=== PATIENT | male | born 1955 | race Two or more races ===

== ENCOUNTER 2016-11-12 09:16 | Inpatient (IN) | payer OTHER ==
--- NOTE | 2016-11-12 09:25 | CPEKG ---
Heart Rate: 63 RR Interval: 952 P-R Interval: 184 QRSD Interval: 104 QT Interval: 396 QTC Interval: 406 P [place]: 53 QRS [place]: -46 T Wave [place]: -34 EKG Severity - ABNORMAL ECG - EKG Impression: SINUS RHYTHM EKG Impression: PROBABLE INFERIOR INFARCT, AGE INDETERMINATE EKG Impression: Less than [address]-elevation in lead V3 only, early right bundle branch block EKG Impression: and T-wave inversions inferiorly. Electronically Signed By: Paulino Salgado 12-Nov-2016 09:35:20
[2016-11-12] MEDS ORDERED: ASPIRIN 81 MG CHEWABLE TAB ONE (09:29)
[2016-11-12] MEDS ORDERED: ASPIRIN 81 MG CHEWABLE TAB PO ONE (09:30)
[2016-11-12] MEDS ORDERED: NITROGLYCERIN 0.4 MG BTL SL PRN ×2 (09:42→15:56)
[2016-11-12] MEDS ORDERED: NS 500 ML IV ONE (09:42)
--- NOTE | 2016-11-12 09:42 | UCPHY ---
H & P Patient Type: New Chief Complaint Nursing Narrative: chest/neck/throat pain on and off since last weekend. generalized fatigue/wekaness all week Time Seen by Provider: 11/12/16 09:33 HPI/ROS: CHIEF COMPLAINT: Chest pain HISTORY OF PRESENT ILLNESS: The patient is a 61-year-old man who comes to the Urgent Care complaining of chest discomfort and throat pain/burning for about 10 days. He states that it began while doing a strenuous bicycle ride last Saturday. His symptoms improved to some degree with rest but has had persistent upper chest and throat discomfort since. He tried taking Zantac without relief. Does have a history of pre diabetes but no other significant medical conditions. His father of Heart disease. No Recent fevers or illness. REVIEW OF SYSTEMS: Constitutional: denies: chills, fever, recent illness, recent injury EENTM: denies: blurred vision, double vision, nose congestion Respiratory: denies: cough, shortness of breath Cardiac: See HPI Gastrointestinal/Abdominal: denies: abdominal pain, diarrhea, nausea, vomiting, blood streaked stools Genitourinary: denies: dysuria, frequency, hematuria, pain Musculoskeletal: denies: joint pain, muscle pain Skin: denies: lesions, rash, jaundice, bruising Neurological: denies: headache, numbness, paresthesia, tingling, dizziness, weakness Hematologic/Lymphatic: denies: blood clots, easy bleeding, easy bruising Immunologic/allergic: denies: HIV/AIDS, transplant EXAM: GENERAL: Well-appearing, well-nourished and in no acute distress. HEAD: Atraumatic, normocephalic. EYES: Pupils equal round and reactive to light, extraocular movements intact, sclera anicteric, conjunctiva are normal. ENT: TMs normal, nares patent, oropharynx clear without exudates. Moist mucous membranes. NECK: Normal range of motion, supple without lymphadenopathy or JVD. LUNGS: Breath sounds clear to auscultation bilaterally and equal. No wheezes rales or rhonchi. HEART: Regular rate and rhythm without murmurs, rubs or gallops. ABDOMEN: Soft, nontender, normoactive bowel sounds. No guarding, no rebound. No masses appreciated. BACK: No CVA tenderness, no spinal tenderness, step-offs or deformities EXTREMITIES: Normal range of motion, no pitting or edema. No clubbing or cyanosis. NEUROLOGICAL: Cranial nerves II through XII grossly intact. Normal speech, normal gait. 5/5 strength, normal movement in all extremities, normal sensation PSYCH: Normal mood, normal affect. SKIN: Warm, dry, normal turgor, no visible rashes or lesions. Source: Patient, Family - Personal History Current Tetanus/Diphtheria Vaccine: Unsure Current Tetanus Diphtheria and Acellular Pertussis (TDAP): Unsure - Medical/Surgical History Hx Asthma: No Hx Chronic Respiratory Disease: No Hx Diabetes: No Hx Cardiac Disease: No Hx Renal Disease: No Hx Cirrhosis: No Hx Alcoholism: No Hx HIV/AIDS: No Hx Splenectomy or Spleen Trauma: No Other PMH: knee sx. eye sx. pre-diabetes diet controlled - Family History Significant Family History: No pertinent family hx - Social History Smoking Status: Never smoked Alcohol Use: None Drug Use: None Constitutional: Initial Vital Signs Temperature (C) 36.3 C 11/12/16 09:28 Heart Rate 64 11/12/16 09:28 Respiratory Rate 18 11/12/16 09:28 Blood Pressure 169/98 H 11/12/16 09:28 O2 Sat (%) 98 11/12/16 09:28 O2 Delivery Mode Room Air Allergies/Adverse Reactions: No Known Allergies Allergy (Unverified 11/12/16 09:28) Home Medications: Medication Instructions Recorded IBUPROFEN 11/12/16 Medical Decision Making - Diagnostics EKG Interpretation: An EKG obtained and was read and documented in trace view. Please see trace view for full reading and report. Sinus rhythm with early right bundle branch block, ST elevation less than 1 mm in lead V3 only. T-wave inversion in lead 3 and AVF. A 2nd EKG obtained and was read and documented in trace view. Please see trace view for full reading and report. Less than [address]-elevation in lead V2 and V3 with T-wave inversions in lead to 3 and AVF. A 3rd EKG obtained and was read and documented in trace view. Please see trace view for full reading and report. Similar to 2nd EKG with less than [address]-elevation in lead V2 and 3 and T-wave inversions inferiorly ED Course/Re-evaluation: 10:05 a.m. the patient's 2nd EKG looks slightly worse altered does not meet criteria for STEMI. Patient is well appearing. He states that he feels. Lab work pending. He has received nitroglycerin and aspirin. 10:20 a.m. I discussed the case with Vicky from [facility]. She requests admission to the hospitalist service and they will consult. 3rd EKG pending. Patient's symptoms resolved with nitroglycerin. 10:40 a.m. I discussed the case with Gunjan who accepted to the PCU for Dr. Fiordaliza Hughes. Patient's pain is resolved. He is well appearing. Differential Diagnosis: Partial list of the Differential diagnosis considered include but were not limited to; acute coronary disease, PE and although unlikely based on the history and physical exam, I also considered pneumonia, arrhythmia. - Data Points Laboratory Results: Laboratory Results 11/12/16 09:45 11/12/16 09:45 11/12/16 11/12/16 11/12/16 09:45 09:45 09:45 WBC 8.14 10^3/uL 10^3/uL (3.80-9.50) RBC 5.26 10^6/uL 10^6/uL (4.40-6.38) Hgb 16.3 g/dL g/dL (13.7-17.5) Hct 45.4 % % (40.0-51.0) MCV 86.3 fL fL (81.5-99.8) MCH 31.0 pg pg (27.9-34.1) MCHC 35.9 g/dL g/dL (32.4-36.7) RDW 12.9 % % (11.5-15.2) Plt Count 239 10^3/uL 10^3/uL (150-400) MPV 10.2 fL fL (8.7-11.7) Neut % (Auto) 51.8 % % (39.3-74.2) Lymph % (Auto) 34.9 % % (15.0-45.0) [place] % (Auto) 8.7 % % (4.5-13.0) Eos % (Auto) 3.3 % % (0.6-7.6) Baso % (Auto) 0.7 % % (0.3-1.7) Nucleat RBC Rel Count 0.0 % % (0.0-0.2) Absolute Neuts (auto) 4.21 10^3/uL 10^3/uL (1.70-6.50) Absolute Lymphs (auto) 2.84 10^3/uL 10^3/uL (1.00-3.00) Absolute Monos (auto) 0.71 10^3/uL 10^3/uL (0.30-0.80) Absolute Eos (auto) 0.27 10^3/uL 10^3/uL (0.03-0.40) Absolute Basos (auto) 0.06 10^3/uL 10^3/uL (0.02-0.10) Absolute Nucleated RBC 0.00 10^3/uL 10^3/uL (0-0.01) Immature Gran % 0.6 % % (0.0-1.1) Immature Gran # 0.05 10^3/uL 10^3/uL (0.00-0.10) PT 12.4 SEC SEC (12.0-15.0) INR 0.95 (0.83-1.16) APTT 28.0 SEC SEC (23.0-38.0) D-Dimer < 0.27 ug/mLFEU ug/mLFEU (0.00-0.50) Sodium 140 mEq/L mEq/L (134-144) Potassium 4.7 mEq/L mEq/L (3.5-5.2) Chloride 100 mEq/L mEq/L (97-110) Carbon Dioxide 24 mEq/l mEq/l (22-31) Anion Gap 16 mEq/L mEq/L (8-16) BUN 23 mg/dL mg/dL (7-23) Creatinine 1.1 mg/dL mg/dL (0.7-1.3) Estimated GFR > 60 Glucose 94 mg/dL mg/dL (70-100) Calcium 9.9 mg/dL mg/dL (8.5-10.4) Total Bilirubin 1.0 mg/dL mg/dL (0.1-1.4) Conjugated Bilirubin 0.3 mg/dL mg/dL (0.0-0.5) Unconjugated Bilirubin 0.7 mg/dL mg/dL (0.0-1.1) AST 24 IU/L IU/L (17-59) ALT 64 IU/L IU/L (21-72) Alkaline Phosphatase 75 IU/L IU/L (38-126) Troponin I 0.108 ng/mL H ng/mL (0-0.034) NT-Pro-B Natriuret Pep 257 pg/mL H pg/mL (0-125) Total Protein 7.5 g/dL g/dL (6.3-8.2) Albumin 4.3 g/dL g/dL (3.5-5.0) Lipase 106.0 IU/L IU/L (23-300) Medications Given: Discontinued Medications Aspirin (Aspirin) 324 mg PO EDNOW ONE Stop: 11/12/16 09:31 Last Admin: 11/12/16 09:31 Dose: 324 mg Sodium Chloride (Ns) 500 mls @ 0 mls/hr IV ONCE ONE PRN Reason: As Directed Stop: 11/12/16 09:43 Last Admin: 11/12/16 10:01 Dose: 500 mls Departure - Departure Disposition: [facility] Inpatient Acute Clinical Impression: Myocardial infarction Qualifiers: Myocardial infarction ST status: non-ST elevation myocardial infarction Qualified Code(s): I21.4 - Non-ST elevation (NSTEMI) myocardial infarction Condition: Fair Referrals: Justin Martin MD [Primary Care Provider] - As per Instructions - PQRS PQRS Measurement: Not applicable
[2016-11-12 09:49] LABS: % IMMATURE GRANULYOCYTES 0.6 % (0.0-1.1); ABSOLUTE IMMATURE GRANULOCYTES 0.05 10^3/uL (0.00-0.10); ADD DIFF? NO; ADD MORPH? NO; ADD SCAN? NO; ATYPICAL LYMPHOCYTE FLAG 0 (0-99); FRAGMENT RBC FLAG 0 (0-99); HEMATOCRIT 45.4 % (40.0-51.0); HEMOGLOBIN 16.3 g/dL (13.7-17.5); LEFT SHIFT FLG 0 (0-99); LIPEMIA HEMOLYSIS FLAG 90 (0-99); MEAN CELL HEMOGLOBIN CONCENTR. 35.9 g/dL (32.4-36.7); MEAN CELL VOLUME 86.3 fL (81.5-99.8); MEAN PLATELET VOLUME 10.2 fL (8.7-11.7); PLATELET CLUMPS FLAG 0 (0-99); PLATELET COUNT 239 10^3/uL (150-400); RED BLOOD CELL COUNT 5.26 10^6/uL (4.40-6.38); RED CELL DISTRIBUTION WIDTH 12.9 % (11.5-15.2)
[2016-11-12 09:59] LABS: INR 0.95 (0.83-1.16); PROTIME(PATIENT) 12.4 SEC (12.0-15.0)
[2016-11-12 10:03] LABS: ALANINE AMINOTRANSFERASE 64 IU/L (21-72); ALBUMIN 4.3 g/dL (3.5-5.0); ALKALINE PHOSPHATASE 75 IU/L (38-126); ANION GAP 16 mEq/L (8-16); ASPARTATE AMINOTRANSFERASE 24 IU/L (17-59); BILIRUBIN-CONJUGATED 0.3 mg/dL (0.0-0.5); BILIRUBIN-UNCONJUGATED 0.7 mg/dL (0.0-1.1); CALCIUM 9.9 mg/dL (8.5-10.4); CARBON DIOXIDE 24 mEq/l (22-31); CHLORIDE 100 mEq/L (97-110); CREATININE 1.1 mg/dL (0.7-1.3); GLOMERULAR FILTRATION RATE > 60; GLUCOSE 94 mg/dL (70-100); POTASSIUM 4.7 mEq/L (3.5-5.2); SODIUM 140 mEq/L (134-144); TOTAL PROTEIN 7.5 g/dL (6.3-8.2)
--- NOTE | 2016-11-12 10:13 | CPEKG ---
Heart Rate: 60 RR Interval: 1000 P-R Interval: 184 QRSD Interval: 106 QT Interval: 408 QTC Interval: 408 P [place]: 41 QRS [place]: -46 T Wave [place]: -37 EKG Severity - ABNORMAL ECG - EKG Impression: SINUS RHYTHM EKG Impression: LEFT ANTERIOR FASCICULAR BLOCK EKG Impression: ABNORMAL T, CONSIDER ISCHEMIA, INFERIOR LEADS EKG Impression: Less than [address]-elevationWith inferior lead T-wave inversions Electronically Signed By: Paulino Salgado 12-Nov-2016 10:27:30
[2016-11-12 10:14] LABS: TROPONIN I 0.108 ng/mL (0-0.034)
--- NOTE | 2016-11-12 10:24 | CPEKG ---
Heart Rate: 58 RR Interval: 1034 P-R Interval: 192 QRSD Interval: 102 QT Interval: 416 QTC Interval: 409 P [place]: 40 QRS [place]: -49 T Wave [place]: -39 EKG Severity - ABNORMAL ECG - EKG Impression: SINUS RHYTHM EKG Impression: LEFT ANTERIOR FASCICULAR BLOCK EKG Impression: ABNORMAL T, CONSIDER ISCHEMIA, INFERIOR LEADS EKG Impression: similar to previous, Electronically Signed By: Paulino Salgado 12-Nov-2016 10:27:48
[2016-11-12] MEDS ORDERED: NS 1,000 ML IV ONE (12:44)
[2016-11-12] MEDS ORDERED: diphenhydrAMINE 25 MG CAP PO ONE ×2 (12:44→13:05)
[2016-11-12] MEDS ORDERED: DIAZEPAM 5 MG TAB PO ONE (12:44)
[2016-11-12] MEDS ORDERED: FAMOTIDINE 20 MG TAB PO ONE (12:44)
[2016-11-12] MEDS ORDERED: fentaNYL 100 MCG/2 ML INJ ONE ×2 (12:51→15:08)
[2016-11-12] MEDS ORDERED: MIDAZOLAM 2 MG/2 ML VIAL ONE ×2 (12:51→15:09)
[2016-11-12] MEDS ORDERED: LIDOCAINE 1% 30 ML SDV ONE (12:51)
[2016-11-12] MEDS ORDERED: IOPAMIDOL (ISOVUE 370) 100 ML BTL IV ONE ×2 (12:52→14:20)
[2016-11-12] MEDS ORDERED: ONDANSETRON DISINTEGRATING 4 MG TAB PO PRN (13:02)
[2016-11-12] MEDS ORDERED: ACETAMINOPHEN 325 MG TAB PO PRN (13:02)
[2016-11-12] MEDS ORDERED: ONDANSETRON 4 MG/2 ML VIAL IVP PRN (13:02)
[2016-11-12] MEDS ORDERED: ZOLPIDEM TARTRATE 5 MG TAB PO PRN (13:02)
[2016-11-12] MEDS ORDERED: DIAZEPAM 5 MG TAB ONE (13:05)
[2016-11-12] MEDS ORDERED: FAMOTIDINE 20 MG TAB ONE (13:05)
--- NOTE | 2016-11-12 13:11 | GCON ---
[f rep st] CONSULTATION DATE OF CONSULTATION: 11/12/2016 CHIEF COMPLAINT: We have been asked by Dr. Hughes to evaluate the patient with a chief complaint of c hest pain. HISTORY OF PRESENT ILLNESS: The patient is a 61-year-old gentleman with risk factors including age, hypertension, and borderline diabetes, who presents with a chief complaint of chest pain. The yuliana ent was in his usual state of health until approximately 1 week prior to admission, when he went for a bike ride. While doing his hill climb, he began to experience throat discomfort which later exte nded down into his chest. The discomfort was associated with diaphoresis, but not nausea or vomitin g. The discomfort lasted approximately 45 minutes to 1 hour before resolving with rest. Since this time, patient has noted a low level chest discomfort. He has not noted the throat discomfort, naus ea, vomiting, or diaphoresis. The patient did go for a walk with his 2 days prior to admission and was unable to make it up a hill secondary to profound fatigue. The patient denies a previous h istory of coronary artery disease. He does have risk factors, as noted above. PAST MEDICAL HISTORY: 1. Hypertension. 2. Borderline diabetes. MEDICATIONS: None. ALLERGIES: No known drug allergies. SOCIAL HISTORY: The patient is a computer lab para professional. He used to work in the for the [employer]. He does not smoke. He denies problems with alcohol. FAMILY HISTORY: Noncontributory. REVIEW OF SYSTEMS: A 10-point review of systems is negative, except as noted in HPI. PHYSICAL EXAMINATION: GENERAL: Patient is resting comfortably in bed. He does not appear to be in acute distress. VITAL SIGNS: Temperature is afebrile. Pulse is 64, blood pressure 168/104, respi ratory rate is 18, SaO2 is 100% on 2 L nasal cannula. HEENT: Normocephalic, atraumatic. Extraocul ar muscles intact. Patient is status post cataract surgery. NECK: No JVD. No bruits. LUNGS: Cl ear to auscultation bilaterally. CARDIOVASCULAR: Regular rate and rhythm S1, S2. No murmurs, rubs , or gallops appreciated. ABDOMEN: Soft, nontender. Normoactive bowel sounds. No hepatosplenomeg chance. Could not palpate aorta. EXTREMITIES: No clubbing, cyanosis, or edema. SKIN: No evidence o f rash. NEURO: Patient awake, alert, and oriented x3. LABORATORY: Sodium 140, potassium 4.7, chloride 100, CO2 24, BUN 23, creatinine 1.1. Troponin 0.10 8. INR was 0.95. White blood cell count 8.14, hemoglobin 16.3, hematocrit 45.4, platelet count 239 . EKG demonstrates sinus rhythm, incomplete right bundle branch block, left anterior fascicular blo ck, T-wave inversions in the inferior leads, J-point elevation in the precordial leads. ASSESSMENT AND PLAN: The patient is a 61-year-old gentleman with multiple cardiac risk factors, who presents with an episode of chest pain approximately 1 week prior to admission consistent with an a cute coronary syndrome versus myocardial infarction. He is continuing to have low level chest disco mfort at this time. Reviewed risks and benefits of cardiac catheterization with the patient and his to further risk stratify the patient. Will arrange to have this performed. /[id number]/MODL
--- NOTE | 2016-11-12 13:41 | GHP ---
[f rep st] HISTORY AND PHYSICAL DATE OF ADMISSION: 11/12/2016 CHIEF COMPLAINT: Chest pain. HISTORY OF PRESENT ILLNESS: The patient is a 61-year-old healthy man who comes in with chest pressu re radiating to his throat. He first noted it a week ago Saturday while he was biking up a hill. T he pain was severe enough that he opted to turn around and come home. The pain was fairly constant until he got home. He said he laid down and then the pain eased off. It was associated with some d iaphoresis but no shortness of breath, nausea, vomiting, or dizziness. Since Saturday the pain has been intermittent, typically gets better when he is lying down and worse when he gets up and around. He was diaphoretic for the first couple days but since then has not been. He has not had any feve rs or chills. He denies shortness of breath, coughing, dizziness. He has had no nausea or vomiting . He opted to call his primary care physician today when his pain was not completely going away and was told to go to urgent care. When he went to urgent care he continued to have some chest discomf ort radiating to his throat. He was given nitroglycerin and 4 baby aspirin and the pain resolved. It is starting to come back and he is having just a little bit of discomfort noted in his right ante rior chest wall. Other than that, he has been healthy. He denies any recent weight changes. No re cent illnesses. No bowel changes. No lower extremity swelling. No neurologic complaints. REVIEW OF SYSTEMS: A 10 point review of systems was done with pertinent positives and negatives pre sent in the HPI. PAST MEDICAL HISTORY: Prediabetes. Patient does admit to similar symptoms although not quite as se anjali in May that was also related to exercise. It has not recurred since then. PAST SURGICAL HISTORY: Includes torn meniscus and cataract. FAMILY HISTORY: Father had a heart arrhythmia and congestive heart failure but no history of stents . Mother from breast cancer and a sister had uterine cancer. SOCIAL HISTORY: He drinks a beer occasionally. Does not smoke tobacco. He is and does a m oderate amount of exercise 1-3 times a week. Typically, he uses the elliptical. He bicycles. He h ikes. ALLERGIES: No known drug allergies. MEDICATIONS: None. PHYSICAL EXAM: VITAL SIGNS: Patient is afebrile. His heart rate is 64, blood pressure 168/104, re spirations 18, he is 100% on 2 L. GENERAL: He is a well-developed, well-nourished 61-year-old man. He is in no obvious distress. He is alert and oriented. Speech is fluent. HEENT: Atraumatic. Pupils equal and reactive. Extraocular movements intact. Sclerae anicteric. Mucous membranes mois t. Oropharynx is clear. NECK: Supple. No adenopathy. CARDIOVASCULAR: No murmur, gallop, or rub . No carotid bruits. No abdominal bruits. LUNGS: Clear to auscultation without wheeze, rhonchi, or rales. ABDOMEN: Soft. No masses. Nontender. Normal bowel sounds. EXTREMITIES: No clubbing, cyanosis, or edema. Pulses are 2+ distally. MUSCULOSKELETAL: No obvious joint deformities or eff usions. No muscle atrophy. NEUROLOGIC: Within normal limits. LABORATORY DATA: CBC and chemistries are all normal. Troponin is elevated at 0.108 with a BNP of 2 57. Electrocardiogram personally reviewed and interpreted, shows sinus rhythm, with an intraventric ular conduction delay. He does have some T-wave inversions in III and aVF with some slight ST eleva tion in V2. Chest x-ray personally reviewed and interpreted: No acute findings. ASSESSMENT AND PLAN: 1. A 61-year-old man presents with chest pressure radiating to his throat and elevated troponin and abnormal EKG. He was evaluated at urgent care, has been transferred here and is currently being ev aluated by Cardiology for angiogram. The patient does have risk factors including prediabetes and d yslipidemia. Recent hemoglobin A1c is 5.9, with an LDL of 114. He could likely benefit from a stat in if he does indeed have heart disease. 2. Dyslipidemia, consider statin. 3. Pre-diabetes, diet controlled. 4. DVT prophylaxis. Patient relatively low risk. We will monitor while he is here. We will not check a lipid panel. He recently had one done on Saturday that showed an LDL of 117. /[id number]/MODL
[2016-11-12] MEDS ORDERED: BIVALIRUDIN 250 MG/5 ML VIAL IV ONE ×2 (13:58→15:04)
[2016-11-12] MEDS ORDERED: EPTIFIBATIDE 200 MG/100 ML BOTTLE IV ONE (14:33)
[2016-11-12] MEDS ORDERED: NITROGLYCERIN 1,500 MCG/15 ML VIAL MISC ONE (14:57)
[2016-11-12] MEDS ORDERED: TICAGRELOR 90 MG TAB PO ONE ×2 (15:39→15:56)
[2016-11-12] MEDS ORDERED: OXYCODONE/APAP 5/325 TAB PO PRN (15:56)
[2016-11-12] MEDS ORDERED: TEMAZEPAM 15 MG CAP PO PRN (15:56)
[2016-11-12] MEDS ORDERED: ASPIRIN EC 325 MG TAB PO ONE (15:56)
[2016-11-12] MEDS ORDERED: LORazepam 2 MG/ML INJ IVP PRN (15:56)
[2016-11-12] MEDS ORDERED: ATROPINE SULFATE 1 MG/10 ML SYR IVP PRN (15:56)
[2016-11-12] MEDS ORDERED: HYDROCODONE/APAP 5/325 TAB PO PRN (15:56)
--- NOTE | 2016-11-12 16:12 | CPEKG ---
Heart Rate: 60 RR Interval: 1000 P-R Interval: 192 QRSD Interval: 108 QT Interval: 412 QTC Interval: 412 P [place]: 45 QRS [place]: -53 T Wave [place]: -30 EKG Severity - ABNORMAL ECG - EKG Impression: SINUS RHYTHM EKG Impression: LAD, CONSIDER LAFB OR INFERIOR INFARCT EKG Impression: ABNORMAL T, CONSIDER ISCHEMIA, INFERIOR LEADS Electronically Signed By: Chucky Bolaños 12-Nov-2016 16:30:12
--- NOTE | 2016-11-12 19:17 | CPIP ---
[f rep st] INVASIVE CARDIAC PROCEDURE DATE OF PROCEDURE: 11/12/2016 PROCEDURES: 1. Coronary angiography. 2. Thrombectomy right coronary artery. 3. Stenting of right coronary artery with Synergy drug-eluting stents. INDICATION: Acute coronary syndrome with elevated troponin. ACCESS: Patient was prepped and draped in sterile fashion. 1% lidocaine was used to anesthetize th e right inguinal region. A 6-Maldivian introducer sheath was placed selectively into the right common femoral artery via modified Seldinger technique. The 6-Maldivian introducer sheath was later exchanged for an 8-Maldivian introducer sheath via exchange wire technique. CORONARY ANGIOGRAPHY: A 6-Maldivian JL4 was advanced to the left main coronary artery and images obtai jelena. The left main coronary artery trifurcated into an LAD, ramus, and circumflex coronary arteries . The left main coronary artery had proximal 15% stenosis present. The left anterior descending co ronary artery gave rise to 1 prominent diagonal branch. The left anterior descending coronary arter y had a discrete 20-25% stenosis prior to the diagonal artery. The diagonal artery quickly branched into 2 smaller branches. The more anterior limb had a long segmental 30% stenosis present. The ra mus coronary artery was a large vessel. The ramus coronary artery had a segmental 50-60% stenosis p resent. The circumflex coronary artery was a small vessel. The circumflex coronary artery gave ris e to 1 OM branch. The circumflex coronary artery had mild diffuse disease throughout. There was no stenosis greater than 10%. A 6-Maldivian JR4 was advanced to the right coronary artery and images obt ained. The right coronary artery was dominant. The right coronary artery was 100% occluded in the proximal segment. PERCUTANEOUS CORONARY INTERVENTION OF THE RIGHT CORONARY ARTERY: An 8-Maldivian JR4 was advanced to th e right coronary artery and images obtained. Angiography demonstrated a total occlusion of the prox imal right coronary artery. An attempt was made at passing a Luge into the distal vessel. This was unsuccessful. An attempt was made at passing a Raking Machine Operator 50 into the distal vessel. This too was unsu ccessful. Ultimately, a Raking Machine Operator 150 with turnpike backup was used to get into the distal vessel. The turnpike catheter was advanced over the Raking Machine Operator 150 wire into the distal vessel, and distal injection demonstrated true lumen. The Raking Machine Operator 150 was then exchanged for a Luge wire and the turnpike withdra wn. A 2.5 x 20 Emerge balloon was used to pre-dilate the proximal and midportion of the vessel. Fo llowup angiography demonstrated DADA 1 flow with significant residual stenosis. A Pronto catheter w as then advanced and thrombectomy performed. Followup angiography demonstrated DADA 0 flow. A 3.0 x 20 Emerge balloon was then advanced and used to pre-dilate the proximal and mid lesions. Followup angiography demonstrated DADA 0 flow. A 3.0 x 28 Synergy drug-eluting stent was placed in the mid 2 lesion and deployed. A 3.5 x 32 Synergy stent was placed in the mid 1 lesion and deployed. A 3.5 x 28 Synergy stent was placed in the proximal lesion and deployed. Followup angiography demonstrat ed incomplete stent expansion with buddhist of DADA 3 flow. The stents were postdilated with a 3 .75 x 20 Emerge balloon. Followup angiography demonstrated DADA 3 flow. No residual stenosis. In the distal portion of the vessel which was now visualized, there were 2 lesions in the distal 1 port ion of the vessel. There was a discreet 75% stenosis present followed by aneurysmal section followe d by a discrete 80% stenosis. The 8-Maldivian system was withdrawn. A 6-Maldivian system was placed. A Luge wire was placed in the distal vessel and position verified by angiography. A 3.0 x 8 Synergy d rug-eluting stent was placed in the distal 2 lesion and deployed. Followup angiography demonstrated no residual stenosis and DADA 3 flow. A 3.0 x 12 Synergy drug-eluting stent was placed in the dist al 1 lesion and deployed. Followup angiography demonstrated DADA 3 flow and complete stent expansio n. The stent was postdilated with a 3 5 x 12 noncompliant balloon. Followup angiography demonstrat ed DADA 3 flow. No residual stenosis. COMPLICATIONS: None. CONCLUSIONS: 1. Two vessel coronary artery disease involving the right coronary artery and ramus coronary artery . 2. Status post successful stenting of the right coronary artery using Synergy drug-eluting stents. /[id number]/MODL
[2016-11-12] MEDS: CARVEDILOL 3.125 MG TAB PO SCH (19:41)
[2016-11-13 04:31] LABS: % IMMATURE GRANULYOCYTES 0.2 % (0.0-1.1); ABSOLUTE IMMATURE GRANULOCYTES 0.02 10^3/uL (0.00-0.10); ADD DIFF? NO; ADD MORPH? NO; ADD SCAN? NO; ATYPICAL LYMPHOCYTE FLAG 0 (0-99); FRAGMENT RBC FLAG 0 (0-99); HEMATOCRIT 43.3 % (40.0-51.0); HEMOGLOBIN 15.4 g/dL (13.7-17.5); LEFT SHIFT FLG 0 (0-99); LIPEMIA HEMOLYSIS FLAG 90 (0-99); MEAN CELL HEMOGLOBIN 31.1 pg (27.9-34.1); MEAN CELL HEMOGLOBIN CONCENTR. 35.6 g/dL (32.4-36.7); MEAN CELL VOLUME 87.5 fL (81.5-99.8); MEAN PLATELET VOLUME 10.2 fL (8.7-11.7); PLATELET CLUMPS FLAG 0 (0-99); PLATELET COUNT 216 10^3/uL (150-400); RED BLOOD CELL COUNT 4.95 10^6/uL (4.40-6.38); RED CELL DISTRIBUTION WIDTH 13.1 % (11.5-15.2)
[2016-11-13 04:47] LABS: ANION GAP 9 mEq/L (8-16); CALCIUM 9.3 mg/dL (8.5-10.4); CARBON DIOXIDE 22 mEq/l (22-31); CHLORIDE 104 mEq/L (97-110); CREATININE 1.1 mg/dL (0.7-1.3); GLOMERULAR FILTRATION RATE > 60; GLUCOSE 117 mg/dL (70-100); POTASSIUM 4.7 mEq/L (3.5-5.2); SODIUM 135 mEq/L (134-144)
[2016-11-13 04:57] LABS: TROPONIN I 0.695 ng/mL (0-0.034)
[2016-11-13 07:53] VITALS: RESP 14; O2SAT 95
[2016-11-13] MEDS ORDERED: TICAGRELOR 90 MG TAB PO SCH (09:00)
[2016-11-13] MEDS ORDERED: ASPIRIN EC 81 MG TAB PO SCH (09:00)
[2016-11-13] MEDS ORDERED: ATORVASTATIN CALCIUM 40 MG TAB PO SCH (09:00)
--- NOTE | 2016-11-13 09:18 | CPEKG ---
Heart Rate: 62 RR Interval: 968 P-R Interval: 176 QRSD Interval: 108 QT Interval: 404 QTC Interval: 411 P [place]: 49 QRS [place]: -54 T Wave [place]: -46 EKG Severity - ABNORMAL ECG - EKG Impression: SINUS RHYTHM EKG Impression: LEFT ANTERIOR FASCICULAR BLOCK Electronically Signed By: Chucky Bolaños 13-Nov-2016 09:35:18
[2016-11-13] MEDS: CARVEDILOL 3.125 MG TAB PO SCH (09:37)
[2016-11-13 11:16] VITALS: BP 122/81; PULSE 63; TEMP 98.2
--- NOTE | 2016-11-13 13:15 | ECHO ---
[id number] + + [address] : : [place] [address] : : [phone] + + Adult Echocardiographic Report + ----+ :Name: JORGE L MAY MStudy Date: 11/13/2016 10:29 AM : : Hospital Admission Number: [id number] Location: 215: :: 1955 Gender: Male Height: 60 in : :Age: 61 yrs Race: [facility] Weight: 178 lb : :Reason For Study: Inferior MO : : BSA: 1.8 meters2 : :History: Stents RCA : + ----+ MMode/2D Measurements \T\ Calculations IVSd: 1.0 cm LVIDd: 5.2 cm FS: 33.2 % Ao root diam: LVPWd: 1.1 cm LVIDs: 3.5 cm EDV(Teich): 3.9 cm 128.2 ml LA dimension: ESV(Teich): 49.4 ml 3.8 cm EF(Teich): 61.5 % LVOT diam: 2.4 cmLVLd ap4: 8.0 cm SV(MOD-sp4): LVOT area: EDV(MOD-sp4): 44.0 ml 4.5 cm2 74.0 ml LVLs ap4: 6.9 cm ESV(MOD-sp4): 30.0 ml EF(MOD-sp4): 59.5 % Normal Measurement Values: + + :LVIDd (3.5-5.7cm) IVSd (0.6-1.1cm) LVPWd (0.6-1.1cm) Aortic Root (2.0-3.7cm)Left Atrium (1.5-4.0cm): :LV Vol(d) (76-115ml) LV Vol(s) (29-48ml) Ejec Fraction (50-65%)PV Christian (0.6- 1.2m/s) TV Christian (0.4-1.0m/s) : :MV E Christian (0.8-1.0m/s)MV A Christian (0.3-1.0m/s)LVOT Christian (0.7-1.2m/s) Asc Ao Christian ( 0.9-1.8m/s) : + + Doppler Measurements \T\ Calculations MV E max christian: 45.9 cm/sec Ao mean P.5 mmHg MV A max christian: 51.1 cm/sec Ao V2 mean: 74.9 cm/sec MV E/A: 0.90 Ao V2 VTI: 21.4 cm Left Ventricle The left ventricle is normal in size. There is normal left ventricular wall thickness. Ejection Fraction = 50-55%. Grade I diastolic dysfunction. LV base/mid inferior/inferoseptal forbes are akinetic. All remaining LV segments have normal motion. Right Ventricle The right ventricle is normal in size and function. Atria The left atrium is mildly dilated. Right atrial size is normal. The atrial septum is aneurysmal. Mitral Valve The mitral valve is normal in structure and function. There is no evidence of mitral valve prolapse. There is no mitral valve stenosis. 2 separate jets mild mitral regurgitation. Tricuspid Valve Normal tricuspid valve. Aortic Valve The aortic valve is trileaflet. The aortic valve opens well. There is no aortic stenosis. There is no aortic insufficiency. Pulmonic Valve The pulmonic valve is normal in structure and function. There is no pulmonic valvular regurgitation. Great Vessels The aortic root is normal size. Mildly dilated ascending aorta. Ascending aorta is 4.0 cm. Pericardium/Pleural There is no pericardial effusion. Conclusion A complete two-dimensional transthoracic echocardiogram was performed (2D, M-mode, Doppler and color flow Doppler). LV base/mid inferior/inferoseptal forbes are akinetic. All remaining LV segments have normal motion. Ejection Fraction = 50-55%. Grade I diastolic dysfunction The left atrium is mildly dilated. 2 separate jets mild mitral regurgitation. Mildly dilated ascending aorta. Ascending aorta is 4.0 cm Final Reading Physician: Dr Christina Chong electronically signed on 11/13/2016 01:14 PM Ordering Physician: Chucky River Performed By: Sarah Vazuqez RDCS
--- NOTE | 2016-11-13 15:09 | SOAPPROG ---
[facility] Progress Note Assessment/Plan: 1. ACS - Pt presented with an ACS on 11/12/16. He was treated with PCI of his RCA using synergy SUYAPA. Pt denies symptoms of angina and CHF. --> Continue medical management with asa, brilinta, coreg, and lipitor. --> Echocardiogram to evaluate LVEF. 2. Hyperlipidemia - Pts LDL is 117. His goal is less than 70. He was just started on lipitor 40 mg daily. --> FLP and LFTs in 6 months 3. HTN - BP is well controlled on coreg. Will not add ezio given low BP. Subjective: No chest pain No orthopnea or PND limited ambulation this am mild groin tenderness Objective: Vital Signs Temp Pulse Resp BP Pulse Ox 36.8 C 63 14 122/81 H 95 11/13/16 11:15 11/13/16 11:15 11/13/16 11:15 11/13/16 11:15 11/13/16 11:15 Laboratory Results 11/13/16 04:00 11/13/16 04:00 11/12/16 11/13/16 11/14/16 05:59 05:59 05:59 Intake Total 300 Output Total 800 Balance -500 PT 12.4 SEC (12.0-15.0) 11/12/16 09:45 INR 0.95 (0.83-1.16) 11/12/16 09:45 Physical Exam - Physical Exam General Appearance: alert, no apparent distress Respiratory: lungs clear Cardiac/Chest: regular rate, rhythm Abdomen: normal bowel sounds, non-tender, soft Skin: normal color Extremities: other (No hematoma or echymosis. 2+ pulses), No pedal edema Neuro/Psych: alert, oriented x 3 ICD10 Worksheet Patient Problems: Problems Problem Status Onset Myocardial infarction Acute
== END 2016-11-13 15:14 | disposition home or self-care (01) | DRG 247 ==
LOC: CED 09:16 → CEDHOLD 10:42 → F2W 11:59 → OBSVTOIN 13:03
PROVIDERS: ADMIT Internal Medicine; ATTEND Internal Medicine
DX: I21.4 Non-ST elevation (NSTEMI) myocardial infarction (principal); I25.10 Atherosclerotic heart disease of native coronary artery without angina pectoris; I10 Essential (primary) hypertension; R73.03 Prediabetes; E78.5 Hyperlipidemia, unspecified
CPT/HCPCS: 71020-PO; 80048-PO; 80076-PO; 83690-PO; 83880-PO; 84484-PO; 85025-PO; 85378-PO; 85610-PO; 85730-PO; C1725; C1757; C1760; C1769; C1874; C1887; C9600; G0463-PO; J0583; J1327; J1644; J2250; J3010; Q9967

== ENCOUNTER 2018-06-27 15:23 | Emergency (ER) | payer OTHER ==
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
[2018-06-27] MEDS ORDERED: TDAP ADULT 0.5 ML INJ (BOOSTRIX) IM ONE (15:37)
[2018-06-27 16:34] VITALS: BP 154/67
== END 2018-06-27 16:33 | disposition home or self-care (01) ==
LOC: CED 15:23
DX: S50.12XA Contusion of left forearm, initial encounter (principal); W22.09XA Striking against other stationary object, initial encounter; Y93.55 Activity, bike riding; Y92.9 Unspecified place or not applicable; Y99.9 Unspecified external cause status; I25.10 Atherosclerotic heart disease of native coronary artery without angina pectoris; Z23 Encounter for immunization; Z95.5 Presence of coronary angioplasty implant and graft
CPT/HCPCS: 73090-PO